=== PATIENT | male | born 1990 ===

== ENCOUNTER 2017-05-02 11:11 | Emergency (ER) | payer SELFPAY ==
[2017-05-02 11:15] VITALS: BP 141/82; PULSE 87; RESP 18; TEMP 97.9; O2SAT 100
--- NOTE | 2017-05-02 11:42 | ED PDOC ---
HPI: Back <Dexter Herrera Jr. - Last Filed: 05/02/17 12:19> Chief Complaint (Provider): Lower Back Pain w Left Leg History Per: Patient History/Exam Limitations: no limitations Onset/Duration Of Symptoms: Other (3 weeks) Current Symptoms Are (Timing): Still Present Quality Of Discomfort: Sharp Description Of Injury (Context): Bent over at hips, lifting up heavy item Severity: Moderate Pain Scale Rating Of: 7 Previous Symptoms: Back Pain Associated Symptoms: None Exacerbating Factor(s): Sitting Additional History Per: Patient Additional Complaint(s): 27 yo M w/o PMHx presents to ER w lower back and left leg pain for 3 weeks. Pt states pain is currently 7/8 - 10 and is 10/10 at it's worst. It begins centrally in lumbar region and radiates through his hip, down his leg, and occasionally into his Left foot. He denies ever experiencing any bladder incontinence/retention, bowel incontinence/retention, or foot drop since the pain began. 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 The pain slowly got worse as the day moved along, and it reached 10/10 when he woke up the next morning. He cannot sit without experiencing pain and he also experiences pain when walking, though the pain level does decrease somewhat when he moves lightly and ambulates. He has only taken Flexeril at bedtime PRN and Tylenol 975mg this morning at 7am, all without relief. He has continued to work throughout the 3 week period. Otherwise, he denies any fevers/chills, nausea, vomiting, diarrhea, constipation, chest pain, SOB, dyspnea, cough, abdominal pain, or other myalgias. He denies etoh, cigarettes, illicit drugs, and states he's getting in [place] tomorrow. - Risk Factors AAA Risk Factors: Neg: Older Than 49 Years Of Age, Hypertension, Connective Tissue Disease, Marfan's Syndrome, Fernando-Danlos Syndrome, Prior AAA, 1st Degree Relative/s With AAA <Gerardo Tavares - Last Filed: 05/02/17 14:07> Time Seen by Provider: 05/02/17 11:30 Chief Complaint (Nursing): Back Pain Past Medical History Vital Signs: Last Vital Signs Temp 97.9 F 05/02/17 11:14 Pulse 87 05/02/17 11:14 Resp 18 05/02/17 11:14 BP 141/82 05/02/17 11:14 Pulse Ox 100 05/02/17 11:57 <Dexter Herrera Jr. - Last Filed: 05/02/17 12:19> Vital Signs: Last Vital Signs Temp 97.9 F 05/02/17 11:14 Pulse 87 05/02/17 11:14 Resp 18 05/02/17 11:14 BP 141/82 05/02/17 11:14 Pulse Ox 100 05/02/17 11:14 - Medical History PMH: No Chronic Diseases - Surgical History Surgical History: No Surg Hx - Family History Family History: States: No Known Family Hx - Social History Current smoker - smoking cessation education provided: No Ex-Smoker (has not smoked in the last 12 months): No Alcohol: None Drugs: Denies <Gerardo Tavares - Last Filed: 05/02/17 14:07> - Home Medications Home Medications: Ambulatory Orders Medication Instructions Recorded Lidocaine 5% [Lidoderm] 1 ea TD DAILY PRN #14 patch 05/02/17 Naproxen [Naprosyn] 500 mg PO Q12H #28 tablet 05/02/17 - Allergies Allergies/Adverse Reactions: Allergies Allergy/AdvReac Type Severity Reaction Status Date / Time No Known Allergies Allergy Verified 05/02/17 11:24 Review of Systems ROS Statement: Except As Marked, All Systems Reviewed And Found Negative (see HPI) <Gerardo Tavares - Last Filed: 05/02/17 14:07> Physical Exam - Physical Exam Appears: Positive for: Non-toxic, Uncomfortable Head Exam: Positive for: ATRAUMATIC, NORMOCEPHALIC Skin: Positive for: Normal Color, Dry Eye Exam: Positive for: Normal appearance, EOMI, PERRL Neck: Positive for: Normal, Painless ROM, Supple Cardiovascular/Chest: Positive for: Regular Rate, Rhythm. Negative for: Edema Respiratory: Positive for: Normal Breath Sounds. Negative for: Stridor, Wheezing, Respiratory Distress Pulses-Post. Tibialis (L): 2+ Pulses-Post. Tibialis (R): 2+ Gastrointestinal/Abdominal: Positive for: Normal Exam, Bowel Sounds, Soft. Negative for: Tenderness Back: Positive for: Vertebral Tenderness (lumbar), Decreased ROM. 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 Negative for: Motor/Sensory Deficits <Gerardo Tavares - Last Filed: 05/02/17 14:07> - ECG O2 Sat by Pulse Oximetry: 100 - Progress ED Course And Treament: 27 yo M w/o PMHx presents to ER w lower back and left leg pain for 3 weeks -Pt took Tylenol 975mg this morning -Will receive Ketorolac 60mg IM -Lidoderm patch -Flexeril 5mg Update: 1330 -Pain, symptoms, complaints stable and not worsening -Instructed to follow up at [facility], phone number and instructions given -Will provide Naproxen and Lidoderm patch -ED precautions discussed, including pain as well as foot drop or bladder & bowel incontinence/retention <Gerardo Tavares - Last Filed: 05/02/17 14:07> Medical Decision Making Medical Decision Making: ATTENDING PHYSICIAN FOCUSED HISTORY AND PHYSICAL EXAM: Pt is a 27 yr old male who was seen and examined with the resident. Pt picked up something heavy 3 weeks ago and has been having low back pain and some left leg pain ever since. No other complaints. Pt recently had a negative xray of lower back (other hospital/site) On our exam, T 97.9F, P 87, R 18, BP 141/82 Gen: Pt is A&O x 3 in NAD Heart: RRR Lungs: CTA B/L Neuro/musculoskeletal: (+) pain with ROM at lower back, motor/sensor grossly intact, nonfocal Initial Impression: Lumbar strain/radiculopathy Initial Plan: Will give pain meds; then reassess <Dexter Herrera Jr. - Last Filed: 05/02/17 12:19> Disposition <Dexter Herrera Jr. - Last Filed: 05/02/17 12:19> - Patient ED Disposition Is Patient to be Admitted: No - Disposition Disposition: Routine/Home Disposition Time: 13:55 <Gerardo Tavares - Last Filed: 05/02/17 14:07> - Clinical Impression Clinical Impression: Acute back pain, Sciatica - Disposition Referrals: Non [facility] Provider, [Primary Care Provider] - Condition: STABLE Additional Instructions: Head to ER if: -unbearable pain returns -bladder incontinence/retention occurs -bowel incontinence/retention occurs -unable to lift foot at ankle joint Follow up at [facility] Dr Tavares [phone] Given Naproxen 500mg Q12H for 14 days, must take with food Given Lidoderm Patch 5% TD for 14 days Prescriptions: Lidocaine 5% [Lidoderm] 1 ea TD DAILY PRN #14 patch PRN Reason: Pain, Moderate (4-7) Naproxen [Naprosyn] 500 mg PO Q12H #28 tablet
[2017-05-02] MEDS ORDERED: Lidocaine 5% Patch TD SCH (11:45)
== END 2017-05-02 15:00 | disposition home or self-care (01) ==
LOC: H.ER 11:11 → SUPCPDRO 11:11 → H.ER 15:00
DX: M54.30 Sciatica, unspecified side (principal)
CPT/HCPCS: 96372; 99282; J1885